=== PATIENT | male | born 1960 | race Caucasian/White ===

== ENCOUNTER 2021-09-16 10:03 | Inpatient (IN) ==
[2021-09-16] MEDS ORDERED: predniSONE 20 MG TABLET PO ONE (10:35)
[2021-09-16] MEDS ORDERED: Ipratropium/Albuterol Neb 3 ML IH ONE (10:35)
[2021-09-16] MEDS ORDERED: Iopamidol - 370 500 ML MLS IVP ONE (10:35)
[2021-09-16 10:48] LABS: Basophils % 0.1 %; Hemoglobin 8.2 g/dL (12.9-16.9)
[2021-09-16 10:49] LABS: Anisocytosis 1+ (Not Present); Eosinophils # 0.1 K/mcL (0.0-0.6); Eosinophils % 1.8 %; Hematocrit 30.2 % (37.5-50.1); Hypochromasia Present (Not Present); Immature Granulocytes % 0.4 % (0-4); Lymphocytes # 1.1 K/mcL (0.6-4.6); Lymphocytes % 14.9 %; Mean Corpuscular HGB Conc 27.2 g/dL (31.6-35.5); Mean Corpuscular Hemoglobin 20.9 pg (28.0-33.3); Mean Platelet Volume 9.4 fL (9.4-12.4); Monocytes # 0.5 K/mcL (0.0-1.3); Monocytes % 6.3 %; Neutrophils # 5.8 K/mcL (1.6-8.9); Nucleated Red Blood Cells 0.3 /100 WBC (0); Platelet Count 337 K/mcL (140-400); Platelet Estimate Normal (Normal); Red Blood Count 3.92 M/mcL (4.19-5.50); Red Cell Distribution Width 17.7 % (11.5-14.5); Segmented Neutrophils % 76.5 %; White Blood Count 7.6 K/mcL (4.3-11.1)
[2021-09-16 10:57] LABS: INR 1.6; Prothrombin Time 18.3 Seconds (9.4-12.1)
[2021-09-16 11:00] LABS: Activated Partial Thrombo Time 30.9 Seconds (26.0-36.0)
[2021-09-16 11:17] LABS: Alanine Aminotransferase 22 Units/L (7-52); Albumin 3.8 g/dL (3.5-5.7); Albumin/Globulin Ratio 1.5 (1.1-2.2); Alkaline Phosphatase 91 Units/L (34-104); Aspartate Amino Transferase 22 Units/L (13-39); BUN/Creatinine Ratio 22 (6-26); Bilirubin,Direct 0.1 mg/dL (0.0-0.2); Bilirubin,Indirect 0.4 mg/dL (0.0-1.0); Bilirubin,Total 0.5 mg/dL (0.3-1.0); Blood Urea Nitrogen 21 mg/dL (8-23); Calcium 9.4 mg/dL (8.6-10.3); Carbon Dioxide 28 mEq/L (23-29); Chloride 107 mEq/L (98-107); Globulin 2.6 g/dL (2.4-3.5); Glucose 91 mg/dL (70-105); Osmolality,Calculated 295 (280-300); Potassium 3.6 mEq/L (3.5-5.1); Sodium 141 mEq/L (136-145); Total Protein 6.4 g/dL (6.4-8.9); Troponin I 0.04 ng/mL (< 0.04); eGFR For African Americans > 60 (> 60); eGFR For Non-African Americans > 60 (> 60)
[2021-09-16] MEDS ORDERED: Furosemide 40 MG/4 ML VIAL IVP ONE (11:44)
[2021-09-16 11:53] LABS: Influenza A PCR Negative (Negative); Influenza B PCR Negative (Negative); Resp. Syncytial Virus PCR Negative (Negative)
[2021-09-16 12:07] LABS: SARS-CoV-2 by PCR (In House) Negative (Negative)
[2021-09-16] MEDS ORDERED: Ondansetron ODT 4 MG TAB.RAPDIS SL PRN (12:57)
[2021-09-16] MEDS ORDERED: Melatonin 3 MG TABLET PO PRN (12:57)
[2021-09-16] MEDS ORDERED: Naloxone 0.4 MG/ML INJ IVP PRN (12:57)
[2021-09-16] MEDS ORDERED: Perflutren Lipid Microsphere 1.3 ML in 0.9 % Sodium Chloride 8.7 ML IVP PRN ×2 (13:03→14:04)
[2021-09-16] MEDS ORDERED: Ipratropium/Albuterol Neb 3 ML IH PRN (13:05)
[2021-09-16] MEDS: Azithromycin 250 MG TABLET PO SCH (14:58)
[2021-09-16] MEDS ORDERED: *HR* Heparin 5,000 UNIT/ML VIAL IVP PRN (15:26)
[2021-09-16] MEDS ORDERED: *HR* Heparin 5,000 UNIT/ML VIAL IVP ONE (15:26)
[2021-09-16] MEDS: Heparin 25,000UNIT/250ML 1/2NS 25,000 UNIT/250 ML IV.SOLN IVC SCH (15:55)
[2021-09-16] MEDS: Furosemide 40 MG/4 ML VIAL IVP SCH (15:56)
[2021-09-16] MEDS ORDERED: Morphine Sulfate 2 MG/ML SYRINGE IVP ONE (16:46)
[2021-09-16] MEDS: Nitroglycerin 0.4 MG TAB.SUBL SL PRN (16:53)
[2021-09-16 17:04] LABS: ABG Base Excess 5 mEq/L (-2 to 3); ABG HCO3 28 mEq/L (21-27); ABG Oxygen Saturation 98 % (95-98); ABG PCO2 34 mmHg (35-45); ABG PH 7.52 pH Units (7.32-7.45); ABG PO2 85 mmHg (85-104); ABG TCO2 29 mEq/L (20-26)
[2021-09-16] MEDS ORDERED: *HR* Enoxaparin 80 MG/0.8 ML SYRINGE SQ SCH (18:00)
[2021-09-17 06:03] LABS: Hemoglobin 8.7 g/dL (12.9-16.9); Mean Corpuscular HGB Conc 27.2 g/dL (31.6-35.5); Mean Corpuscular Hemoglobin 20.4 pg (28.0-33.3); Mean Corpuscular Volume 74.9 fL (83.0-100.0); Mean Platelet Volume 9.9 fL (9.4-12.4); Platelet Count 386 K/mcL (140-400); Red Blood Count 4.27 M/mcL (4.19-5.50); Red Cell Distribution Width 17.4 % (11.5-14.5); White Blood Count 8.1 K/mcL (4.3-11.1)
[2021-09-17 06:27] LABS: % Iron Saturation 3 % (20-55); Iron 15 mcg/dL (65-175); Transferrin 394 mg/dL (203-362)
[2021-09-17 06:43] LABS: Folate 11.3 ng/mL (3.0-16.0)
[2021-09-17 07:06] LABS: Ferritin < 8 ng/mL (20-250)
[2021-09-17 07:20] LABS: BUN/Creatinine Ratio 22 (6-26); Blood Urea Nitrogen 22 mg/dL (8-23); Calcium 9.2 mg/dL (8.6-10.3); Carbon Dioxide 30 mEq/L (23-29); Chloride 101 mEq/L (98-107); Chol/HDL Ratio 3.7 (0-4.9); Cholesterol 143 mg/dL (< 200); Glucose 106 mg/dL (70-105); HDL Cholesterol 39 mg/dL (40-59); LDL Cholesterol,Calculated 92 mg/dL (< 100); Magnesium 1.8 mg/dL (1.6-2.6); Osmolality,Calculated 292 (280-300); Phosphorous 3.4 mg/dL (2.7-4.5); Potassium 2.9 mEq/L (3.5-5.1); Sodium 139 mEq/L (136-145); Triglycerides 58 mg/dL (< 150); eGFR For African Americans > 60 (> 60); eGFR For Non-African Americans > 60 (> 60)
[2021-09-17] MEDS: Metoprolol XL (24 HR) Succ 25 MG TAB.ER.24H PO SCH (07:58)
[2021-09-17] MEDS: Aspirin 81 MG TAB.CHEW PO SCH (07:58)
[2021-09-17] MEDS: predniSONE 20 MG TABLET PO SCH (07:59)
[2021-09-17] MEDS: Furosemide 40 MG/4 ML VIAL IVP SCH (07:59)
[2021-09-17] MEDS: Iron Sucrose Complex 250 MG in 0.9 % Sodium Chloride 250 ML IVPB SCH (08:14)
[2021-09-17] MEDS ORDERED: 0.9 % Sodium Chloride 500 ML ONE (10:17)
[2021-09-17] MEDS: Azithromycin 250 MG TABLET PO SCH (14:28)
[2021-09-17] MEDS: Heparin 25,000UNIT/250ML 1/2NS 25,000 UNIT/250 ML IV.SOLN IVC SCH (17:07)
[2021-09-17] MEDS: Gabapentin 300 MG CAPSULE PO SCH ×2 (17:09→19:41)
[2021-09-18 04:46] LABS: Hemoglobin 8.5 g/dL (12.9-16.9)
[2021-09-18 04:47] LABS: Hematocrit 31.3 % (37.5-50.1); Mean Corpuscular HGB Conc 27.2 g/dL (31.6-35.5); Mean Corpuscular Hemoglobin 20.5 pg (28.0-33.3); Mean Corpuscular Volume 75.6 fL (83.0-100.0); Mean Platelet Volume 9.6 fL (9.4-12.4); Platelet Count 401 K/mcL (140-400); Red Blood Count 4.14 M/mcL (4.19-5.50); Red Cell Distribution Width 17.8 % (11.5-14.5); White Blood Count 11.1 K/mcL (4.3-11.1)
[2021-09-18 05:09] LABS: BUN/Creatinine Ratio 24 (6-26); Blood Urea Nitrogen 24 mg/dL (8-23); Calcium 8.9 mg/dL (8.6-10.3); Carbon Dioxide 32 mEq/L (23-29); Chloride 102 mEq/L (98-107); Glucose 93 mg/dL (70-105); Lactate Dehydrogenase 178 Units/L (140-271); Magnesium 2.1 mg/dL (1.6-2.6); Osmolality,Calculated 290 (280-300); Potassium 3.8 mEq/L (3.5-5.1); Sodium 138 mEq/L (136-145); eGFR For African Americans > 60 (> 60); eGFR For Non-African Americans > 60 (> 60)
[2021-09-18] MEDS: Gabapentin 300 MG CAPSULE PO SCH ×3 (08:20→20:55)
[2021-09-18] MEDS: predniSONE 20 MG TABLET PO SCH (08:21)
[2021-09-18] MEDS: Aspirin 81 MG TAB.CHEW PO SCH (08:22)
[2021-09-18] MEDS: Metoprolol XL (24 HR) Succ 25 MG TAB.ER.24H PO SCH (08:23)
[2021-09-18] MEDS: Iron Sucrose Complex 250 MG in 0.9 % Sodium Chloride 250 ML IVPB SCH (08:25)
[2021-09-18] MEDS ORDERED: Cyanocobalamin (B-12) 1,000 MCG/ML VIAL SQ ONE (08:55)
[2021-09-18] MEDS ORDERED: Furosemide 40 MG/4 ML VIAL IVP SCH (09:00)
[2021-09-18] MEDS: Furosemide 40 MG TABLET PO SCH (10:36)
[2021-09-18] MEDS: lisinopriL 5 MG TABLET PO SCH (11:20)
[2021-09-18] MEDS: Spironolactone 12.5 MG TABLET PO SCH (11:20)
[2021-09-18] MEDS: Azithromycin 250 MG TABLET PO SCH (14:26)
[2021-09-18] MEDS: Cyanocobalamin (B-12) 1,000 MCG TABLET PO SCH (14:27)
[2021-09-18 15:41] LABS: RBC,Pleural Fluid < 2000 RBC/mcL
[2021-09-18 16:09] LABS: Amylase,Pleural Fluid 12 Units/L (No Ref Range); Glucose,Pleural Fluid 116 mg/dL (No Ref Range); LDH,Pleural Fluid 58 Units/L (No Ref Range); Total Protein,Pleural Fluid < 2.0 g/dL
[2021-09-18] MEDS: carvediloL 6.25 MG TABLET PO SCH (16:37)
[2021-09-18] MEDS ORDERED: *HR* LORazepam 0.5 MG TABLET PO ONE (16:43)
[2021-09-18 17:30] LABS: Appearance of Pleural Fl Clear (Clear)
[2021-09-18 17:38] LABS: Basophils,Pleural Fluid 0 %; Eosinophils,Pleural Fluid 0 %
[2021-09-18] MEDS: Heparin 25,000UNIT/250ML 1/2NS 25,000 UNIT/250 ML IV.SOLN IVC SCH (22:10)
[2021-09-19 02:39] LABS: Red Cell Distribution Width 17.8 % (11.5-14.5)
[2021-09-19 02:40] LABS: Hemoglobin 8.3 g/dL (12.9-16.9); Mean Corpuscular HGB Conc 26.8 g/dL (31.6-35.5); Mean Corpuscular Hemoglobin 20.8 pg (28.0-33.3); Mean Corpuscular Volume 77.5 fL (83.0-100.0); Mean Platelet Volume 10.1 fL (9.4-12.4); Platelet Count 409 K/mcL (140-400); White Blood Count 12.3 K/mcL (4.3-11.1)
[2021-09-19 02:48] LABS: BUN/Creatinine Ratio 17 (6-26); Blood Urea Nitrogen 21 mg/dL (8-23); Calcium 8.9 mg/dL (8.6-10.3); Carbon Dioxide 31 mEq/L (23-29); Chloride 102 mEq/L (98-107); Glucose 144 mg/dL (70-105); Osmolality,Calculated 292 (280-300); Potassium 3.8 mEq/L (3.5-5.1); Sodium 138 mEq/L (136-145); eGFR For African Americans > 60 (> 60); eGFR For Non-African Americans 57 (> 60)
[2021-09-19] MEDS: lisinopriL 5 MG TABLET PO SCH (08:17)
[2021-09-19] MEDS: Gabapentin 300 MG CAPSULE PO SCH ×3 (08:17→20:32)
[2021-09-19] MEDS: Spironolactone 12.5 MG TABLET PO SCH (08:18)
[2021-09-19] MEDS: Cyanocobalamin (B-12) 1,000 MCG TABLET PO SCH (08:18)
[2021-09-19] MEDS: predniSONE 20 MG TABLET PO SCH (08:18)
[2021-09-19] MEDS: carvediloL 6.25 MG TABLET PO SCH ×2 (08:18→16:09)
[2021-09-19] MEDS: Aspirin 81 MG TAB.CHEW PO SCH (08:18)
[2021-09-19] MEDS: Furosemide 40 MG TABLET PO SCH (08:23)
[2021-09-19] MEDS ORDERED: Acetaminophen 325 MG TABLET PO PRN (08:37)
[2021-09-19] MEDS: Ketorolac 30 MG/ML VIAL IVP PRN (09:25)
[2021-09-19] MEDS: Iron Sucrose Complex 250 MG in 0.9 % Sodium Chloride 250 ML IVPB SCH (09:32)
[2021-09-19] MEDS ORDERED: *HR* OxyCODONE Immed Rel 5 MG TABLET PO ONE (12:24)
[2021-09-19] MEDS ORDERED: Preparation H Ointment 57 GM TUBE RC PRN (12:52)
[2021-09-19] MEDS: Azithromycin 250 MG TABLET PO SCH (13:38)
[2021-09-20] MEDS: Heparin 25,000UNIT/250ML 1/2NS 25,000 UNIT/250 ML IV.SOLN IVC SCH (00:51)
[2021-09-20 05:38] LABS: Basophils % 0.2 %; Hemoglobin 8.7 g/dL (12.9-16.9)
[2021-09-20 05:40] LABS: Eosinophils # 0.1 K/mcL (0.0-0.6); Eosinophils % 0.7 %; Hematocrit 32.5 % (37.5-50.1); Immature Granulocytes % 1.4 % (0-4); Lymphocytes # 2.1 K/mcL (0.6-4.6); Lymphocytes % 17.1 %; Mean Corpuscular HGB Conc 26.8 g/dL (31.6-35.5); Mean Corpuscular Hemoglobin 20.8 pg (28.0-33.3); Mean Corpuscular Volume 77.8 fL (83.0-100.0); Mean Platelet Volume 9.5 fL (9.4-12.4); Monocytes # 0.8 K/mcL (0.0-1.3); Monocytes % 6.4 %; Neutrophils # 9.1 K/mcL (1.6-8.9); Nucleated Red Blood Cells 0.7 /100 WBC (0); Platelet Count 422 K/mcL (140-400); Red Blood Count 4.18 M/mcL (4.19-5.50); Red Cell Distribution Width 18.9 % (11.5-14.5); Segmented Neutrophils % 74.2 %; White Blood Count 12.2 K/mcL (4.3-11.1)
[2021-09-20 05:56] LABS: BUN/Creatinine Ratio 15 (6-26); Blood Urea Nitrogen 14 mg/dL (8-23); Calcium 9.2 mg/dL (8.6-10.3); Carbon Dioxide 31 mEq/L (23-29); Chloride 105 mEq/L (98-107); Glucose 86 mg/dL (70-105); Magnesium 1.9 mg/dL (1.6-2.6); Osmolality,Calculated 290 (280-300); Phosphorous 3.5 mg/dL (2.7-4.5); Potassium 4.2 mEq/L (3.5-5.1); Sodium 140 mEq/L (136-145); eGFR For African Americans > 60 (> 60); eGFR For Non-African Americans > 60 (> 60)
[2021-09-20 06:16] LABS: Anisocytosis 1+ (Not Present); Hypochromasia Present (Not Present)
[2021-09-20] MEDS: predniSONE 20 MG TABLET PO SCH (07:40)
[2021-09-20] MEDS: Aspirin 81 MG TAB.CHEW PO SCH (07:40)
[2021-09-20] MEDS: Cyanocobalamin (B-12) 1,000 MCG TABLET PO SCH (07:40)
[2021-09-20] MEDS: carvediloL 6.25 MG TABLET PO SCH ×2 (07:40→16:50)
[2021-09-20] MEDS: Spironolactone 12.5 MG TABLET PO SCH (07:40)
[2021-09-20] MEDS: Gabapentin 300 MG CAPSULE PO SCH ×3 (07:40→20:18)
[2021-09-20] MEDS: lisinopriL 5 MG TABLET PO SCH (07:40)
[2021-09-20] MEDS: Ketorolac 30 MG/ML VIAL IVP PRN ×2 (07:45→12:52)
[2021-09-20] MEDS: Furosemide 40 MG TABLET PO SCH (11:27)
[2021-09-20] MEDS: Nitroglycerin 0.4 MG TAB.SUBL SL PRN (12:52)
[2021-09-20] MEDS ORDERED: Ketamine *HR* 500 MG/10 ML MDV ONE (14:01)
[2021-09-20] MEDS ORDERED: Lidocaine -MPF 2% 5 ML VIAL ONE (14:06)
[2021-09-20] MEDS ORDERED: *HR* Midazolam HCl 2 MG/2 ML VIAL ONE (14:06)
[2021-09-20] MEDS: Azithromycin 250 MG TABLET PO SCH (16:50)
[2021-09-20] MEDS: *HR* Heparin 5,000 UNIT/ML VIAL IVP PRN (22:16)
[2021-09-21] MEDS: Heparin 25,000UNIT/250ML 1/2NS 25,000 UNIT/250 ML IV.SOLN IVC SCH (05:29)
[2021-09-21 05:48] LABS: Hematocrit 34.4 % (37.5-50.1); Hemoglobin 9.3 g/dL (12.9-16.9); Mean Corpuscular Hemoglobin 21.2 pg (28.0-33.3); Mean Corpuscular Volume 78.5 fL (83.0-100.0); Red Blood Count 4.38 M/mcL (4.19-5.50)
[2021-09-21 05:49] LABS: Mean Platelet Volume 9.8 fL (9.4-12.4); Platelet Count 444 K/mcL (140-400); Red Cell Distribution Width 20.1 % (11.5-14.5)
[2021-09-21 06:08] LABS: BUN/Creatinine Ratio 19 (6-26); Blood Urea Nitrogen 20 mg/dL (8-23); Calcium 8.8 mg/dL (8.6-10.3); Carbon Dioxide 28 mEq/L (23-29); Chloride 105 mEq/L (98-107); Glucose 74 mg/dL (70-105); Osmolality,Calculated 293 (280-300); Potassium 3.7 mEq/L (3.5-5.1); Sodium 141 mEq/L (136-145); eGFR For African Americans > 60 (> 60); eGFR For Non-African Americans > 60 (> 60)
[2021-09-21 07:01] VITALS: BP 147/93; PULSE 58; TEMP 98.2; O2SAT 99
[2021-09-21] MEDS: *HR* Heparin 5,000 UNIT/ML VIAL IVP PRN (07:06)
[2021-09-21] MEDS: Gabapentin 300 MG CAPSULE PO SCH (09:20)
[2021-09-21] MEDS: Spironolactone 12.5 MG TABLET PO SCH (09:20)
[2021-09-21] MEDS: carvediloL 6.25 MG TABLET PO SCH (09:20)
[2021-09-21] MEDS: predniSONE 20 MG TABLET PO SCH (09:20)
[2021-09-21] MEDS: Cyanocobalamin (B-12) 1,000 MCG TABLET PO SCH (09:20)
[2021-09-21] MEDS: Aspirin 81 MG TAB.CHEW PO SCH (09:20)
[2021-09-21] MEDS: lisinopriL 5 MG TABLET PO SCH (09:20)
[2021-09-21] MEDS: Furosemide 40 MG TABLET PO SCH (09:23)
[2021-09-21] MEDS ORDERED: *HR* Heparin 10,000 UNIT/10 ML VIAL ONE (11:01)
[2021-09-21] MEDS ORDERED: Heparin 1,000 UNITS/500 mL 0 ML ONE (11:02)
[2021-09-21] MEDS ORDERED: Nitroglycerin 1,000 MCG/5 ML VIAL IV ONE (11:02)
[2021-09-21] MEDS ORDERED: Iopamidol - 370 200 ML INFUS..BTL ONE (11:02)
== END 2021-09-21 11:15 | disposition left against medical advice (07) | DRG 194 ==
LOC: EMEROOARM 10:03 → 2ANU 10:03 → SUATTDRO 12:58 → 2ANU 14:19 → SUATTDRO 09-18 13:54
PROVIDERS: ADMIT Internal Medicine; ATTEND Student in an Organized Health Care Education/Training Program

== ENCOUNTER 2021-09-28 21:51 | Observation (INO) ==
[2021-09-28 22:54] LABS: Basophils % 0.3 %
[2021-09-28 22:55] LABS: Eosinophils # 0.2 K/mcL (0.0-0.6); Eosinophils % 3.4 %; Hematocrit 34.9 % (37.5-50.1); Hemoglobin 9.5 g/dL (12.9-16.9); Immature Granulocytes % 0.2 % (0-4); Lymphocytes # 1.3 K/mcL (0.6-4.6); Lymphocytes % 20.1 %; Mean Corpuscular HGB Conc 27.2 g/dL (31.6-35.5); Mean Corpuscular Hemoglobin 22.4 pg (28.0-33.3); Mean Corpuscular Volume 82.3 fL (83.0-100.0); Monocytes # 0.5 K/mcL (0.0-1.3); Neutrophils # 4.4 K/mcL (1.6-8.9); Platelet Count 316 K/mcL (140-400); Red Blood Count 4.24 M/mcL (4.19-5.50); Red Cell Distribution Width 24.6 % (11.5-14.5); White Blood Count 6.4 K/mcL (4.3-11.1)
[2021-09-28 23:16] LABS: Hypochromasia Present (Not Present)
[2021-09-28 23:20] LABS: BUN/Creatinine Ratio 15 (6-26); Blood Urea Nitrogen 18 mg/dL (8-23); Calcium 9.4 mg/dL (8.6-10.3); Carbon Dioxide 24 mEq/L (23-29); Chloride 111 mEq/L (98-107); Glucose 93 mg/dL (70-105); Osmolality,Calculated 300 (280-300); Potassium 3.7 mEq/L (3.5-5.1); Sodium 144 mEq/L (136-145); eGFR For African Americans > 60 (> 60); eGFR For Non-African Americans > 60 (> 60)
[2021-09-28 23:24] LABS: Troponin I 0.04 ng/mL (< 0.04)
[2021-09-29] MEDS: Nitroglycerin 0.4 MG TAB.SUBL SL SCH ×2 (01:11→05:50)
[2021-09-29 01:31] LABS: Ethanol < 10 mg/dL (Less than 10); Troponin I 0.04 ng/mL (< 0.04)
[2021-09-29] MEDS ORDERED: Naloxone 0.4 MG/ML INJ IVP PRN (02:04)
[2021-09-29] MEDS ORDERED: Melatonin 3 MG TABLET PO PRN (02:04)
[2021-09-29] MEDS ORDERED: Ondansetron ODT 4 MG TAB.RAPDIS SL PRN (02:04)
[2021-09-29 02:17] LABS: VBG HCO3 27 mEq/L (21-27); VBG PCO2 50 mmHg (41-51); VBG PH 7.33 pH Units (7.32-7.42); VBG PO2 193 mmHg (25-50)
[2021-09-29] MEDS ORDERED: Nitroglycerin 0.4 MG TAB.SUBL SL PRN (02:50)
[2021-09-29] MEDS ORDERED: Ipratropium/Albuterol Neb 3 ML IH PRN (02:55)
[2021-09-29 05:35] LABS: Adenovirus Not Detected (Not Detect); Bordetella Pertussis Not Detected (Not Detect); Chlamydophila pneumoniae Not Detected (Not Detect); Coronavirus 229E Not Detected (Not Detect); Coronavirus HKU1 Not Detected (Not Detect); Coronavirus NL63 Not Detected (Not Detect); Coronavirus OC43 Not Detected (Not Detect); Human Metapneumovirus Not Detected (Not Detect); Human Rhinovirus/Enterovirus Not Detected (Not Detect); Influenza A Subtype 2009 H1 Not Detected (Not Detect); Influenza B Not Detected (Not Detect); Mycoplasma pneumoniae Not Detected (Not Detect); Parainfluenza Virus 1 Not Detected (Not Detect); Parainfluenza Virus 2 Not Detected (Not Detect); Parainfluenza Virus 3 Not Detected (Not Detect); Parainfluenza Virus 4 Not Detected (Not Detect); Respiratory Syncytial Virus Not Detected (Not Detect); SARS-CoV-2 Not Detected (Not Detect)
[2021-09-29 07:11] LABS: Hemoglobin 9.2 g/dL (12.9-16.9); Mean Corpuscular Hemoglobin 22.7 pg (28.0-33.3); Red Blood Count 4.06 M/mcL (4.19-5.50)
[2021-09-29 07:12] LABS: Hematocrit 34.1 % (37.5-50.1); Mean Platelet Volume 9.6 fL (9.4-12.4); Platelet Count 294 K/mcL (140-400); Red Cell Distribution Width 24.7 % (11.5-14.5); White Blood Count 5.4 K/mcL (4.3-11.1)
[2021-09-29 07:17] LABS: Estimated Average Glucose 108 mg/dl; Hemoglobin A1C 5.4 %
[2021-09-29 07:36] LABS: BUN/Creatinine Ratio 19 (6-26); Blood Urea Nitrogen 20 mg/dL (8-23); Carbon Dioxide 27 mEq/L (23-29); Chloride 111 mEq/L (98-107); Chol/HDL Ratio 2.7 (0-4.9); Cholesterol 141 mg/dL (< 200); Glucose 92 mg/dL (70-105); HDL Cholesterol 53 mg/dL (40-59); LDL Cholesterol,Calculated 58 mg/dL (< 100); Magnesium 2.2 mg/dL (1.6-2.6); Osmolality,Calculated 298 (280-300); Phosphorous 5.1 mg/dL (2.7-4.5); Potassium 3.9 mEq/L (3.5-5.1); Sodium 143 mEq/L (136-145); Triglycerides 148 mg/dL (< 150); eGFR For African Americans > 60 (> 60); eGFR For Non-African Americans > 60 (> 60)
[2021-09-29 07:44] LABS: Thyroid Stimulating Hormone 2.806 mcIU/mL (0.340-5.600)
[2021-09-29] MEDS ORDERED: Apixaban 5 MG TABLET PO SCH (09:00)
[2021-09-29] MEDS: Aspirin 81 MG TAB.CHEW PO SCH (11:12)
[2021-09-29] MEDS: Furosemide 40 MG TABLET PO SCH (11:12)
[2021-09-29] MEDS ORDERED: *HR* Heparin 5,000 UNIT/ML VIAL IVP PRN ×2 (12:17)
[2021-09-29] MEDS ORDERED: Heparin 25,000UNIT/250ML 1/2NS 25,000 UNIT/250 ML IV.SOLN IVC SCH (12:30)
[2021-09-29 13:01] LABS: Hematocrit 34.6 % (37.5-50.1)
[2021-09-29 13:02] LABS: Hemoglobin 9.5 g/dL (12.9-16.9); Mean Corpuscular HGB Conc 27.5 g/dL (31.6-35.5); Mean Corpuscular Hemoglobin 23.1 pg (28.0-33.3); Mean Corpuscular Volume 84.2 fL (83.0-100.0); Mean Platelet Volume 9.1 fL (9.4-12.4); Platelet Count 281 K/mcL (140-400); Red Blood Count 4.11 M/mcL (4.19-5.50); Red Cell Distribution Width 24.5 % (11.5-14.5); White Blood Count 5.9 K/mcL (4.3-11.1)
[2021-09-29 13:08] LABS: Prothrombin Time 11.3 Seconds (9.4-12.1)
[2021-09-29 13:11] LABS: Activated Partial Thrombo Time 30.2 Seconds (26.0-36.0)
[2021-09-29] MEDS: Spironolactone 12.5 MG TABLET PO SCH (13:38)
[2021-09-29] MEDS: lisinopriL 5 MG TABLET PO SCH (13:38)
[2021-09-29] MEDS: carvediloL 6.25 MG TABLET PO SCH ×2 (13:38→20:37)
[2021-09-29] MEDS: Heparin 25,000UNIT/250ML 1/2NS 25,000 UNIT/250 ML IV.SOLN IVC SCH (13:39)
[2021-09-29 21:14] LABS: Amphetamine Screen,Urine Positive ng/mL (Cutoff=1000); Barbiturate Screen,Urine Negative ng/mL (Cutoff=200); Benzodiazepines Screen,Urine Positive ng/mL (Cutoff=200); Cannabinoid Screen,Urine Positive ng/mL (Cutoff = 50); Cocaine Screen,Urine Negative ng/mL (Cutoff= 300); Opiate Screen,Urine Positive ng/mL (Cutoff=300); Phencyclidine Screen,Urine Negative ng/mL (Cutoff=25)
[2021-09-29] MEDS: Gabapentin 300 MG CAPSULE PO SCH (22:01)
[2021-09-29] MEDS: *HR* HYDROcodone/Acet 5/325 mg TABLET PO PRN (22:01)
[2021-09-30] MEDS: carvediloL 6.25 MG TABLET PO SCH ×2 (08:48→15:59)
[2021-09-30] MEDS: lisinopriL 5 MG TABLET PO SCH (08:49)
[2021-09-30] MEDS: Furosemide 40 MG TABLET PO SCH (08:49)
[2021-09-30] MEDS: Spironolactone 12.5 MG TABLET PO SCH (08:49)
[2021-09-30] MEDS: Gabapentin 300 MG CAPSULE PO SCH ×3 (08:49→22:18)
[2021-09-30] MEDS: Aspirin 81 MG TAB.CHEW PO SCH (08:49)
[2021-09-30] MEDS: Heparin 25,000UNIT/250ML 1/2NS 25,000 UNIT/250 ML IV.SOLN IVC SCH (12:23)
[2021-09-30] MEDS: *HR* HYDROcodone/Acet 5/325 mg TABLET PO PRN (16:00)
[2021-10-01] MEDS: Furosemide 40 MG TABLET PO SCH (09:29)
[2021-10-01] MEDS: Gabapentin 300 MG CAPSULE PO SCH ×3 (09:29→19:44)
[2021-10-01] MEDS: Spironolactone 12.5 MG TABLET PO SCH (09:29)
[2021-10-01] MEDS: Aspirin 81 MG TAB.CHEW PO SCH (09:29)
[2021-10-01] MEDS: lisinopriL 5 MG TABLET PO SCH (09:29)
[2021-10-01] MEDS: carvediloL 6.25 MG TABLET PO SCH ×2 (09:29→18:17)
[2021-10-01] MEDS: Heparin 25,000UNIT/250ML 1/2NS 25,000 UNIT/250 ML IV.SOLN IVC SCH (10:04)
[2021-10-01] MEDS: *HR* HYDROcodone/Acet 5/325 mg TABLET PO PRN (14:29)
[2021-10-02 05:31] LABS: Basophils % 0.6 %; Eosinophils # 0.2 K/mcL (0.0-0.6); Eosinophils % 3.9 %; Hematocrit 37.4 % (37.5-50.1); Hemoglobin 10.4 g/dL (12.9-16.9); Immature Granulocytes % 0.4 % (0-4); Lymphocytes # 1.7 K/mcL (0.6-4.6); Lymphocytes % 30.6 %; Mean Corpuscular HGB Conc 27.8 g/dL (31.6-35.5); Mean Corpuscular Volume 82.6 fL (83.0-100.0); Mean Platelet Volume 9.4 fL (9.4-12.4); Monocytes # 0.4 K/mcL (0.0-1.3); Monocytes % 7.4 %; Neutrophils # 3.1 K/mcL (1.6-8.9); Platelet Count 297 K/mcL (140-400); Red Blood Count 4.53 M/mcL (4.19-5.50); Red Cell Distribution Width 24.7 % (11.5-14.5); Segmented Neutrophils % 57.1 %; White Blood Count 5.4 K/mcL (4.3-11.1)
[2021-10-02 05:49] LABS: Anisocytosis 1+ (Not Present); BUN/Creatinine Ratio 22 (6-26); Blood Urea Nitrogen 23 mg/dL (8-23); Carbon Dioxide 27 mEq/L (23-29); Chloride 106 mEq/L (98-107); Glucose 94 mg/dL (70-105); Osmolality,Calculated 289 (280-300); Platelet Estimate Normal (Normal); Potassium 4.3 mEq/L (3.5-5.1); Sodium 138 mEq/L (136-145); eGFR For African Americans > 60 (> 60); eGFR For Non-African Americans > 60 (> 60)
[2021-10-02 07:10] VITALS: TEMP 97.9
[2021-10-02] MEDS: Heparin 25,000UNIT/250ML 1/2NS 25,000 UNIT/250 ML IV.SOLN IVC SCH (09:29)
[2021-10-02] MEDS: Gabapentin 300 MG CAPSULE PO SCH (09:29)
[2021-10-02] MEDS: Furosemide 40 MG TABLET PO SCH (09:29)
[2021-10-02] MEDS: carvediloL 6.25 MG TABLET PO SCH (09:29)
[2021-10-02] MEDS: lisinopriL 5 MG TABLET PO SCH (09:29)
[2021-10-02] MEDS: Spironolactone 12.5 MG TABLET PO SCH (09:29)
[2021-10-02] MEDS: Aspirin 81 MG TAB.CHEW PO SCH (09:29)
[2021-10-02] MEDS ORDERED: *HR* Heparin 10,000 UNIT/10 ML VIAL ONE (09:40)
[2021-10-02] MEDS ORDERED: Heparin 1,000 UNITS/500 mL 500 ML ONE (09:41)
[2021-10-02] MEDS ORDERED: Nitroglycerin 1,000 MCG/5 ML VIAL IV ONE (09:41)
[2021-10-02] MEDS ORDERED: 0.9 % Sodium Chloride 1,000 ML ONE (09:41)
[2021-10-02] MEDS ORDERED: Iopamidol - 370 200 ML INFUS..BTL ONE (09:41)
[2021-10-02] MEDS ORDERED: *HR* FentaNYL (PF) 100 MCG/2 ML VIAL ONE ×2 (09:49→10:35)
[2021-10-02] MEDS ORDERED: *HR* Midazolam HCl 2 MG/2 ML VIAL ONE ×2 (09:50→10:35)
[2021-10-02] MEDS: *HR* HYDROcodone/Acet 5/325 mg TABLET PO PRN (12:20)
[2021-10-02 13:24] VITALS: BP 113/78; PULSE 78; O2SAT 95
== END 2021-10-02 15:58 | disposition home or self-care (01) ==
LOC: EMEROOARM 21:51 → 3BNU 21:51 → SUATTDRO 09-29 01:48 → 3BNU 09-29 02:40
PROVIDERS: ADMIT Internal Medicine; ATTEND Registered Nurse